=== PATIENT | male | born 1980 | race Hispanic/Latino ===

== ENCOUNTER 2024-01-04 13:05 | Emergency (ER) | payer OTHER ==
[~2024-01-04 13:05] MED LIST: CACL 1GM SYG IVP ONE; EPINEPHRINE 1MG/10ML(1:10,000) 0.1 MG/ML SYG ONE; SODIUM BICARB 8.4% 50ML SYRINGE ONE
== END 2024-01-04 17:32 ==
LOC: EDH 13:05
DX: I46.9 Cardiac arrest, cause unspecified (principal); R40.20 Unspecified coma; I12.9 Hypertensive chronic kidney disease with stage 1 through stage 4 chronic kidney disease, or unspecified chronic kidney disease; N18.9 Chronic kidney disease, unspecified; Z98.890 Other specified postprocedural states
CPT/HCPCS: 99285; 92950; 31500; 84484; 82948; 36415; J0171; J3490 ×2